=== PATIENT | male | born 1960 | race Two or more races ===

== ENCOUNTER 2023-08-12 08:57 | Inpatient (IN) | payer MEDICAID ==
[~2023-08-12] VITALS: Ht 180.3 cm; Wt 70.4 kg
[2023-08-12 09:50] LABS: Basophils # (auto) 0.1 10 ^3/uL (0-0.2); Eosinophils # (auto) 0.1 10 ^3/uL (0-0.8); Eosinophils % (auto) 1.1 % (0.0-7.0); Hemoglobin 7.7 g/dL (13.5-17.5); Lymphocytes % (auto) 27.9 % (10.0-50.0); Mean Corpuscular Hemoglobin 27.4 pg (28.0-32.0); Mean Corpuscular Hgb Conc. 32.1 g/dL (32.0-36.0); Mean Corpuscular Volume 85.4 fL (80.0-100.0); Monocytes # (auto) 0.4 10 ^3/uL (0-1.3); Neutrophils # (auto) 4.7 10 ^3/uL (1.6-8.6); Nucleated Red Blood Cells % 0.7 %; Red Blood Cells 2.81 10^6/uL (4.5-5.90); Red Cell Distribution Width 19.6 % (11.8-14.3); White Blood Cell 7.3 10^3/uL (4.4-10.8)
[2023-08-12 09:55] VITALS: PULSE 116; RESP 20; O2SAT 98
[2023-08-12 10:12] LABS: Alanine Aminotransferase 23 U/L (7-40); Albumin 4.4 g/dL (3.2-4.8); Anion Gap 6 (5-15); Aspartate Aminotransferase 273 U/L (13-40); BUN/Creatinine Ratio 21.7 (10.0-20.0); Bilirubin, Total 0.6 mg/dL (0.2-1.0); Blood Urea Nitrogen 20 mg/dL (9-23); Calcium 8.8 mg/dL (8.7-10.4); Carbon Dioxide 25 mmol/L (20-30); Chloride 101 mmol/L (98-107); Glucose 315 mg/dL (74-106); Potassium 4.3 mmol/L (3.5-5.1); Sodium 132 mmol/L (136-145); Total Protein 7.2 g/dL (5.7-8.2)
[2023-08-12 10:20] LABS: Alkaline Phosphatase 1557 U/L (46-116)
[2023-08-12] MEDS ORDERED: DOCUSATE SOD 100 MG CAP PO PRN (12:15)
[2023-08-12] MEDS ORDERED: MORPHINE SULFATE INJ 2 MG/ml SYRG IV PRN (12:15)
[2023-08-12] MEDS ORDERED: ONDANSETRON HCL 4 MG/2 ML VIAL IV PRN (12:15)
[2023-08-12] MEDS ORDERED: SODIUM CHLORIDE 0.9% 1,000 ML IV ONE (12:15)
[2023-08-12] MEDS ORDERED: DEXTROSE (50%) 50ML SYRG IV PRN (12:15)
[2023-08-12] MEDS: SODIUM CHLORIDE 0.9% 1,000 ML IV SCH ×2 (12:57→20:15)
[2023-08-12 13:34] LABS: INR 1.16 (0.9-1.15); Prothrombin Time 12.1 sec (9.3-11.8)
[2023-08-12 13:49] LABS: Hematocrit 22.3 % (41.0-53.0); Hemoglobin 7.2 g/dL (13.5-17.5)
[2023-08-12] MEDS ORDERED: IOHEXOL 300 MG/ML 100ML BOTTLE IJ ONE (13:58)
[2023-08-12 14:26] LABS: Erythrocyte Sedimentation Rate 124 mm/hr (0-20)
[2023-08-12 14:40] LABS: % Iron Saturation 17.2 % (20-55)
[2023-08-12 15:57] VITALS: BP 130/61; PULSE 106; RESP 12; TEMP 100.1
[2023-08-12 16:20] VITALS: BP 132/57; PULSE 108; RESP 14; TEMP 99.7
[2023-08-12 17:37] VITALS: BP 137/59; PULSE 106; RESP 12; TEMP 99.5
[2023-08-12] MEDS: ACCU-CHEK COMFORT CURVE STRIP VI SCH ×2 (17:51→22:00)
[2023-08-12] MEDS: InsuLIN REG 1unit/0.01ml Soln (100units/ml) SC SCH ×2 (17:56→22:00)
[2023-08-12 19:30] VITALS: PULSE 109; RESP 24; O2SAT 98
[2023-08-12 20:49] LABS: Urine Bacteria NONE SEEN /hpf (None Seen); Urine Blood Negative /uL (Negative); Urine Clarity Clear (Clear); Urine Color Colorless (Yellow); Urine Protein, UAD TRACE (Negative); Urine Specific Gravity 1.046 (1.001-1.035); Urine Urobilinogen Normal (Negative); Urine WBC <1 /hpf (0 - 3); Urine pH 5.5 (5.0-8.0)
[2023-08-12] MEDS: HYDROcodone-ACET 5/325MG TAB PO PRN (22:51)
[2023-08-13] VITALS (7 sets, daily range): BP systolic 103–131; BP diastolic 49–63; PULSE 95–103; RESP 16–21; TEMP 97.8–99.9; O2SAT 95–99
[2023-08-13] MEDS: SODIUM CHLORIDE 0.9% 1,000 ML IV SCH ×3 (04:15→20:15)
[2023-08-13] MEDS: InsuLIN REG 1unit/0.01ml Soln (100units/ml) SC SCH ×4 (06:06→21:19)
[2023-08-13] MEDS: ACCU-CHEK COMFORT CURVE STRIP VI SCH ×4 (06:34→22:00)
[2023-08-13 06:45] LABS: Hematocrit 23.1 % (41.0-53.0); Hemoglobin 7.6 g/dL (13.5-17.5); Mean Corpuscular Hemoglobin 27.9 pg (28.0-32.0); Mean Corpuscular Hgb Conc. 32.9 g/dL (32.0-36.0); Mean Corpuscular Volume 84.8 fL (80.0-100.0); Red Blood Cells 2.72 10^6/uL (4.5-5.90); Red Cell Distribution Width 18.8 % (11.8-14.3); White Blood Cell 5.9 10^3/uL (4.4-10.8)
[2023-08-13 06:48] LABS: Basophils % (manual) 0 (0.0-2.0); Blast Cells 0; Promyelocytes % 0
[2023-08-13 07:05] LABS: Alanine Aminotransferase 13 U/L (7-40); Albumin 3.9 g/dL (3.2-4.8); Anion Gap 7 (5-15); Aspartate Aminotransferase 76 U/L (13-40); BUN/Creatinine Ratio 18.8 (10.0-20.0); Bilirubin, Total 0.8 mg/dL (0.2-1.0); Blood Urea Nitrogen 13 mg/dL (9-23); Calcium 8.9 mg/dL (8.7-10.4); Carbon Dioxide 25 mmol/L (20-30); Chloride 102 mmol/L (98-107); Glucose 154 mg/dL (74-106); Sodium 134 mmol/L (136-145); Total Protein 6.7 g/dL (5.7-8.2)
[2023-08-13 07:12] LABS: Alkaline Phosphatase 1207 U/L (46-116)
[2023-08-13 07:42] LABS: Band Neutrophils % (manual) 9; Eosinophils % (manual) 3 (0-7); Lymphocytes % (manual) 26 (10.0-50.0); Metamyelocytes % 5; Monocytes % (manual) 1 (0-12); Myelocytes % 3; Platelet Estimate Adequate; Reactive Lymphocytes 1
[2023-08-13] MEDS: HYDROcodone-ACET 5/325MG TAB PO PRN ×2 (10:52→21:24)
[2023-08-13] MEDS ORDERED: ASPI-543 PO (11:54)
[2023-08-13] MEDS ORDERED: ATOR20TA50 PO (11:54)
[2023-08-13 12:26] LABS: Basophils # (auto) 0.1 10 ^3/uL (0-0.2); Eosinophils # (auto) 0.1 10 ^3/uL (0-0.8); Hemoglobin 8.2 g/dL (13.5-17.5); Monocytes # (auto) 0.6 10 ^3/uL (0-1.3)
[2023-08-13 12:29] LABS: Eosinophils % (auto) 1.2 % (0.0-7.0); Hematocrit 24.4 % (41.0-53.0); Lymphocytes # (auto) 2.5 10 ^3/uL (0.4-5.4); Lymphocytes % (auto) 33.3 % (10.0-50.0); Mean Corpuscular Hemoglobin 28.2 pg (28.0-32.0); Mean Corpuscular Hgb Conc. 33.6 g/dL (32.0-36.0); Mean Corpuscular Volume 83.8 fL (80.0-100.0); Monocytes % (auto) 8.3 % (0.0-12.0); Neutrophils # (auto) 4.3 10 ^3/uL (1.6-8.6); Neutrophils % (auto) 56.2 % (37.0-80.0); Nucleated Red Blood Cells % 1.8 %; Red Blood Cells 2.91 10^6/uL (4.5-5.90); White Blood Cell 7.6 10^3/uL (4.4-10.8)
[2023-08-14] VITALS (7 sets, daily range): BP systolic 99–130; BP diastolic 52–65; PULSE 81–106; RESP 18–20; TEMP 37.9; O2SAT 96–99
[2023-08-14] MEDS: SODIUM CHLORIDE 0.9% 1,000 ML IV SCH ×3 (04:15→17:37)
[2023-08-14] MEDS: InsuLIN REG 1unit/0.01ml Soln (100units/ml) SC SCH ×4 (06:27→22:00)
[2023-08-14] MEDS: ACCU-CHEK COMFORT CURVE STRIP VI SCH ×3 (07:00→16:28)
[2023-08-14] MEDS ORDERED: LIDOCAINE 2%HCL (LOCAL ANESTH.) INJ 10ml MDV ONE (08:57)
[2023-08-14] MEDS ORDERED: MIDAZOLAM HCL 2MG/2ML 2ml VIAL (1mg/ml) IV ONE (09:15)
[2023-08-14] MEDS ORDERED: fentaNYL CITRATE 100 MCG/2 ML VL IV ONE (09:15)
[2023-08-14 11:03] LABS: Hepatitis B Surface Antigen Negative (Negative)
[2023-08-14 11:24] LABS: Hepatitis A Ab IgM Negative
[2023-08-14 11:25] LABS: Hepatitis B Core IgM Negative; Hepatitis C Antibody Negative (Negative)
[2023-08-14] MEDS: HYDROcodone-ACET 5/325MG TAB PO PRN ×2 (12:01→19:59)
[2023-08-14 13:51] LABS: Folate (Folic Acid) 14.64 ng/mL (>5.38)
[2023-08-14 13:57] LABS: Ferritin > 1650.0 ng/mL (22-322)
[2023-08-15] VITALS (7 sets, daily range): BP systolic 111–141; BP diastolic 55–71; PULSE 86–103; RESP 17–19; TEMP 98.5–99.3; O2SAT 98–100
[2023-08-15] MEDS: SODIUM CHLORIDE 0.9% 1,000 ML IV SCH ×3 (05:18→20:15)
[2023-08-15 06:06] LABS: PSA Free >50.00 ng/mL
[2023-08-15] MEDS: InsuLIN REG 1unit/0.01ml Soln (100units/ml) SC SCH ×4 (06:18→21:47)
[2023-08-15] MEDS: ACCU-CHEK COMFORT CURVE STRIP VI SCH ×4 (06:20→21:50)
[2023-08-15 08:07] LABS: Haptoglobin 463 mg/dL (32-363); Immunoglobulin A 133 mg/dL (61-437); Immunoglobulin G, Serum 1191 mg/dL (603-1613); Immunoglobulin M 62 mg/dL (20-172)
[2023-08-15 11:06] LABS: Kappa Lite Chain Free Serum 22.4 mg/L (3.3-19.4)
[2023-08-15 14:06] LABS: Erythropoietin 192.7 mIU/mL (2.6-18.5)
[2023-08-15] MEDS: HYDROcodone-ACET 5/325MG TAB PO PRN (21:41)
[2023-08-16] VITALS (7 sets, daily range): BP systolic 102–129; BP diastolic 49–79; PULSE 91–99; RESP 16–18; TEMP 98.3–98.4; O2SAT 99–100
[2023-08-16] MEDS: SODIUM CHLORIDE 0.9% 1,000 ML IV SCH ×3 (02:00→20:15)
[2023-08-16] MEDS: ACCU-CHEK COMFORT CURVE STRIP VI SCH ×4 (06:03→21:55)
[2023-08-16] MEDS: InsuLIN REG 1unit/0.01ml Soln (100units/ml) SC SCH ×4 (06:05→21:59)
[2023-08-16] MEDS: HYDROcodone-ACET 5/325MG TAB PO PRN (14:34)
[2023-08-17] MEDS: HYDROcodone-ACET 5/325MG TAB PO PRN (00:05)
[2023-08-17] MEDS ORDERED: TRAM50TA2 PO (11:44)
[2023-08-17] MEDS ORDERED: BICA50TA41 PO (11:44)
[2023-08-17 16:30] VITALS: BP 101/57; PULSE 73; RESP 19; TEMP 98.3; O2SAT 97
[2023-08-17 17:09] VITALS: TEMP 36.8
== END 2023-08-17 18:00 | disposition home or self-care (01) | DRG 500 ==
LOC: ER 08:57 → TELE 12:18 → TELE-CENTR 21:44 → CENTRAL 08-16 14:54
PROVIDERS: ADMIT Nurse Practitioner Family; ATTEND Family Medicine
PROC: 30233N1 Transfusion of Nonautologous Red Blood Cells into Peripheral Vein, Percutaneous Approach (ICD-10-PCS; principal; 2023-08-12)
PROC: 0QB33ZX Excision of Left Pelvic Bone, Percutaneous Approach, Diagnostic (ICD-10-PCS; 2023-08-14)
DX: C61 Malignant neoplasm of prostate (principal); C79.51 Secondary malignant neoplasm of bone; D62 Acute posthemorrhagic anemia; E87.1 Hypo-osmolality and hyponatremia; E11.9 Type 2 diabetes mellitus without complications; N40.0 Benign prostatic hyperplasia without lower urinary tract symptoms; Z79.84 Long term (current) use of oral hypoglycemic drugs; Z83.3 Family history of diabetes mellitus; Z91.148 Patient's other noncompliance with medication regimen for other reason
CPT/HCPCS: 10005; 36415; 71260; 72192; 74176; 74177; 76705; 77012; 78306; 80053; 80074; 81001; 82010; 82270; 82378; 82607; 82668; 82728; 82746; 82784; 82962; 83010; 83036; 83540; 83550; 83615; 83690; 83883; 84154; 84439; 84443; 84484; 85007; 85014; 85018; 85025; 85027; 85045; 85384; 85610; 85652; 86141; 86334; 86850; 86880; 86900; 86901; 86920; 93005; G0378; J1815; J2001; J2250